=== PATIENT | male | born 1945 | race Caucasian/White ===

== ENCOUNTER → 2018-12-03 | Outpatient (CLI) | payer OTHER ==
[~2018-12-03] MED LIST: ALLO100T30 PO; CEFAZOLIN 1,000 MG ONE; CHOL2000 PO; DEXAMETHASONE 4 MG/ML, 1ML ONE; FENTANYL PF 100 MCG/2ML ONE; GLYCOPYRROLATE 0.2MG/1ML, 5ML ONE; NEOSTIGMINE 1 MG/ML, 10ML ONE; ONDANSETRON 2MG/ML, 2ML ONE; PROPOFOL 10 MG/ML, 20ML ONE; ROCURONIUM 10MG/ML,5ML ONE; SUCCINYLCHOLINE 20 MG/ML, 10ML ONE; TAMS-11 PO
[2018-12-03 16:04] LABS: MICROSCOPIC AUTO
== END | disposition home or self-care (01) ==
LOC: STAR 14:54
PROVIDERS: ATTEND Urology
DX: Z01.818 Encounter for other preprocedural examination (principal); N20.0 Calculus of kidney
CPT/HCPCS: 81001; 87086; 93005

== ENCOUNTER 2018-12-08 06:34 | Observation (INO) | payer OTHER ==
[~2018-12-08] VITALS: Ht 172.7 cm; Wt 66.7 kg
[~2018-12-08 06:34] MED LIST changes: -CEFAZOLIN 1,000 MG ONE; -DEXAMETHASONE 4 MG/ML, 1ML ONE; -FENTANYL PF 100 MCG/2ML ONE; -GLYCOPYRROLATE 0.2MG/1ML, 5ML ONE; -NEOSTIGMINE 1 MG/ML, 10ML ONE; -ONDANSETRON 2MG/ML, 2ML ONE; -PROPOFOL 10 MG/ML, 20ML ONE; -ROCURONIUM 10MG/ML,5ML ONE; -SUCCINYLCHOLINE 20 MG/ML, 10ML ONE
[2018-12-08 06:57] VITALS: BP 139/77
[2018-12-08] MEDS ORDERED: CEFAZOLIN PMX 1GM/50ML 50 ML IV ONE (07:00)
[2018-12-08] MEDS ORDERED: LIDOCAINE-MPF 1%, 5ML ONE (07:20)
[2018-12-08] MEDS: SODIUM CHLORIDE 0.9% 1,000 ML IV SCH ×2 (07:22→16:09)
[2018-12-08] MEDS ORDERED: FLUMAZENIL 0.1 MG/1 ML, 5ML ONE (08:06)
[2018-12-08] MEDS ORDERED: FENTANYL PF 100 MCG/2ML ONE ×2 (08:06→10:39)
[2018-12-08] MEDS ORDERED: MIDAZOLAM 1 MG/ML, 5ML ONE (08:06)
[2018-12-08] MEDS ORDERED: NALOXONE 1 MG/ML, 2ML ONE (08:06)
[2018-12-08] MEDS ORDERED: OMNIPAQUE 350 MG/ML, 50 ML BOTTLE ONE (11:20)
[2018-12-08] MEDS ORDERED: EPHEDRINE 50 MG/ML, 1ML ONE (11:21)
[2018-12-08] MEDS ORDERED: CIPROFLOXACIN 400MG/200ML PMX ONE (11:21)
[2018-12-08] MEDS ORDERED: PROPOFOL 10 MG/ML, 20ML ONE ×2 (11:53→11:58)
[2018-12-08] MEDS ORDERED: ONDANSETRON 2MG/ML, 2ML ONE ×2 (11:53→11:58)
[2018-12-08] MEDS ORDERED: DEXAMETHASONE 4 MG/ML, 1ML ONE ×2 (11:53→11:58)
[2018-12-08] MEDS ORDERED: CEFAZOLIN 1,000 MG ONE ×2 (11:53→11:58)
[2018-12-08] MEDS ORDERED: ROCURONIUM 10MG/ML,5ML ONE ×2 (11:53→11:58)
[2018-12-08] MEDS ORDERED: NEOSTIGMINE 1 MG/ML, 10ML ONE ×2 (11:53→11:58)
[2018-12-08] MEDS ORDERED: SUCCINYLCHOLINE 20 MG/ML, 10ML ONE ×2 (11:53→11:58)
[2018-12-08] MEDS ORDERED: GLYCOPYRROLATE 0.2MG/1ML, 5ML ONE ×2 (11:53→11:58)
[2018-12-08] MEDS ORDERED: FENTANYL PF 250 MCG/5ML ONE (11:58)
[2018-12-08] MEDS ORDERED: FENTANYL PF 100 MCG/2ML IV PRN (12:30)
[2018-12-08] MEDS ORDERED: ONDANSETRON 2MG/ML, 2ML IV PRN ×2 (12:30→15:00)
[2018-12-08] MEDS ORDERED: ACETAMINOPHEN 325 MG TABLET PO PRN (12:30)
[2018-12-08] MEDS ORDERED: ONDANSETRON ODT 8 MG PO PRN (12:30)
[2018-12-08] MEDS ORDERED: DIAZEPAM 5 MG/ML, 2ML IVPush PRN (12:30)
[2018-12-08] MEDS ORDERED: OXYcodone 5 MG/5 ML ORAL.SOL UDC PO PRN (12:30)
[2018-12-08] MEDS ORDERED: HYDROmorphone 2 MG/ML, 1ML IVPush PRN (12:30)
[2018-12-08] MEDS ORDERED: PROMETHAZINE 25 MG/ML, 1ML IV PRN (12:30)
[2018-12-08] MEDS ORDERED: OXYcodone 5 MG/5 ML ORAL.SOL UDC ONE (14:35)
[2018-12-08] MEDS ORDERED: OXYcodone/APAP 5/325MG TABLET PO PRN (15:00)
[2018-12-08] MEDS ORDERED: HYDROmorphone 2 MG/ML, 1ML IV PRN (15:00)
[2018-12-08 20:38] VITALS: BP 120/74
[2018-12-08] MEDS ORDERED: TAMSULOSIN 0.4 MG CAP.ER.24H PO SCH (21:00)
[2018-12-08] MEDS: LACTATED RINGERS 1,000 ML IV SCH (23:25)
[2018-12-09 00:25] VITALS: BP 112/69
[2018-12-09 05:15] LABS: BASOPHILS % (AUTO) 0 % (0-1); EOSINOPHILS # (AUTO) 0.49 x10^3/uL (0-0.4); EOSINOPHILS % (AUTO) 3 % (1-7); LYMPHOCYTES # (AUTO) 0.55 x10^3/uL (1-3.4); LYMPHOCYTES % (AUTO) 4 % (22-44); MD NO; MEAN CORPUSCULAR HEMOGLOBIN 31.8 pg (27.5-34.5); MEAN CORPUSCULAR HGB CONC 33.8 g/dL (33.2-36.2); MEAN CORPUSCULAR VOLUME 93.9 fL (81-97); MEAN PLATELET VOLUME 9.7 fL (7.4-10.4); MONOCYTES # (AUTO) 0.59 x10^3/uL (0.2-0.8); MONOCYTES % (AUTO) 4 % (2-9); NEUTROPHILS # (AUTO) 13.63 x10^3/uL (1.8-6.8); NEUTROPHILS % (AUTO) 89 % (42-75); PLATELET COUNT 192 x10^3/uL (130-400); RED BLOOD COUNT 2.79 x10^6/uL (4.38-5.82); RED CELL DISTRIBUTION WIDTH 16.3 % (9.4-14.8)
[2018-12-09 05:24] LABS: ANION GAP 10 mmol/L (5-15); CALCIUM 7.1 mg/dL (8.5-10.1); CHLORIDE 114 mmol/L (98-107); CREATININE 2.03 mg/dL (0.7-1.3)
[2018-12-09 06:58] VITALS: BP 100/53
[2018-12-09] MEDS: LACTATED RINGERS 1,000 ML IV SCH (07:56)
[2018-12-09] MEDS ORDERED: CHOLECALCIFEROL 1,000 UNIT TABLET PO SCH (09:00)
[2018-12-09] MEDS ORDERED: ALLOPURINOL 100 MG TABLET PO SCH (09:00)
[2018-12-09 12:22] VITALS: BP 99/61
[2018-12-09] MEDS ORDERED: HYDR-3240 PO (12:42)
== END 2018-12-09 13:00 | disposition home or self-care (01) ==
LOC: OUT 06:34 → ORIP 14:51 → 4NOR 15:45 → DCLOUNGE 12-09 12:41
PROVIDERS: ADMIT Urology; ATTEND Urology
DX: N20.0 Calculus of kidney (principal)
CPT/HCPCS: 36415; 50080; 50433; 74425; 80048; 82360; 85025; 88300; 99156; 99157; C1727; C1729; C1751; C1758; C1769; C1894; C2625; C2627; G0378; J0330; J0690; J0744; J1100; J2250; J2405; J2704; J2710; J3010; J3490; J7030; J7120; Q9967; J2310

== ENCOUNTER 2019-06-18 12:35 | Outpatient (CLI) | payer OTHER ==
[~2019-06-18 12:35] MED LIST changes: +HYDR-3240 PO
[2019-06-18 13:46] LABS: MICROSCOPIC INDICATED
[2019-06-18 13:47] LABS: CULTURE INDICATED? YES
[2019-06-18] MEDS ORDERED: PT TO BRING LIST (13:53)
[2019-06-18 14:18] LABS: BASOPHILS # (AUTO) 0.06 x10^3/uL (0-0.1); BASOPHILS % (AUTO) 1 % (0-1); EOSINOPHILS # (AUTO) 0.33 x10^3/uL (0-0.4); EOSINOPHILS % (AUTO) 4 % (1-7); LYMPHOCYTES # (AUTO) 1.32 x10^3/uL (1-3.4); LYMPHOCYTES % (AUTO) 15 % (22-44); MD NO; MEAN CORPUSCULAR HEMOGLOBIN 31.9 pg (27.5-34.5); MEAN CORPUSCULAR HGB CONC 32.3 g/dL (33.2-36.2); MEAN CORPUSCULAR VOLUME 98.9 fL (81-97); MEAN PLATELET VOLUME 8.1 fL (7.4-10.4); MONOCYTES # (AUTO) 0.45 x10^3/uL (0.2-0.8); MONOCYTES % (AUTO) 5 % (2-9); NEUTROPHILS # (AUTO) 6.92 x10^3/uL (1.8-6.8); NEUTROPHILS % (AUTO) 76 % (42-75); PLATELET COUNT 284 x10^3/uL (130-400); RED BLOOD COUNT 3.82 x10^6/uL (4.38-5.82); RED CELL DISTRIBUTION WIDTH 14.2 % (9.4-14.8)
[2019-06-18 14:25] LABS: ALANINE AMINOTRANSFERASE 11 U/L (12-78); ALBUMIN 3.4 g/dL (3.4-5.0); ANION GAP 7 mmol/L (5-15); CALCIUM 8.5 mg/dL (8.5-10.1); CHLORIDE 105 mmol/L (98-107); CREATININE 1.75 mg/dL (0.7-1.3)
[2019-06-18 14:27] LABS: ALKALINE PHOSPHATASE 92 U/L (45-117); BILIRUBIN,TOTAL 0.5 mg/dL (0.2-1.0); TOTAL PROTEIN 8.3 g/dL (6.4-8.2)
== END 2019-06-18 23:59 | disposition home or self-care (01) ==
LOC: STAR 12:35
PROVIDERS: ATTEND Urology
DX: Z01.818 Encounter for other preprocedural examination (principal); N20.0 Calculus of kidney
CPT/HCPCS: 36415; 80053; 81001; 85025; 87077; 87086; 93005

== ENCOUNTER 2019-06-29 06:45 | Observation (INO) | payer OTHER ==
[~2019-06-29] VITALS: Ht 172.7 cm; Wt 61.9 kg
[~2019-06-29 06:45] MED LIST changes: +PT TO BRING LIST
[2019-06-29] MEDS ORDERED: LACTATED RINGERS 1,000 ML IV SCH (07:43)
[2019-06-29] MEDS ORDERED: TOLT2TAB4 PO (07:48)
[2019-06-29] MEDS ORDERED: POTA10TA17 PO (07:48)
[2019-06-29] MEDS ORDERED: FERR324T5 PO (07:48)
[2019-06-29] MEDS ORDERED: MAGN420T PO (07:48)
[2019-06-29] MEDS ORDERED: TAMS-11 PO (07:48)
[2019-06-29] MEDS ORDERED: LIDOCAINE-MPF 1%, 2ML INFIL ONE (08:00)
[2019-06-29] MEDS: SODIUM CHLORIDE 0.9% 1,000 ML IV SCH ×2 (08:20→18:16)
[2019-06-29] MEDS ORDERED: LIDOCAINE 1%, 10ML ONE (08:32)
[2019-06-29] MEDS ORDERED: DIPHENHYDRAMINE 50 MG/ML, 1ML ONE (09:00)
[2019-06-29] MEDS ORDERED: FLUMAZENIL 0.1 MG/1 ML, 5ML ONE (09:00)
[2019-06-29] MEDS ORDERED: FENTANYL PF 100 MCG/2ML ONE (09:00)
[2019-06-29] MEDS ORDERED: NALOXONE 1 MG/ML, 2ML ONE (09:00)
[2019-06-29] MEDS ORDERED: MIDAZOLAM 1 MG/ML, 5ML ONE (09:00)
[2019-06-29] MEDS ORDERED: CEFAZOLIN PMX 1GM/50ML 50 ML ONE (09:13)
[2019-06-29] MEDS ORDERED: VISIPAQUE 270 MG/ML, 50ML BOTTLE ONE (10:00)
[2019-06-29] MEDS ORDERED: FENTANYL PF 250 MCG/5ML ONE (13:24)
[2019-06-29] MEDS ORDERED: PROPOFOL 10 MG/ML, 20ML ONE (13:45)
[2019-06-29] MEDS ORDERED: ROCURONIUM 10MG/ML,5ML ONE (13:45)
[2019-06-29] MEDS ORDERED: DEXAMETHASONE 4 MG/ML, 1ML ONE (13:45)
[2019-06-29] MEDS ORDERED: OCTREOTIDE 500 MCG/ML, 1ML (0.5MG/ML) ONE (14:00)
[2019-06-29] MEDS ORDERED: OXYcodone/APAP 5/325MG TABLET PO PRN (16:30)
[2019-06-29] MEDS ORDERED: ONDANSETRON 2MG/ML, 2ML IV PRN ×2 (16:30→17:00)
[2019-06-29] MEDS ORDERED: hydrALAzine 20 MG/ML, 1ML IV PRN (17:00)
[2019-06-29] MEDS ORDERED: PROMETHAZINE 25 MG/ML, 1ML IV PRN (17:00)
[2019-06-29] MEDS ORDERED: OXYcodone 5 MG/5 ML ORAL.SOL UDC PO PRN (17:00)
[2019-06-29] MEDS ORDERED: FENTANYL PF 100 MCG/2ML IV PRN (17:00)
[2019-06-29] MEDS ORDERED: LABETALOL 5MG/ML, 20ML IV PRN (17:00)
[2019-06-29] MEDS ORDERED: HYDROmorphone 2 MG/ML, 1ML IVPush PRN (17:00)
[2019-06-29] MEDS ORDERED: hydrALAzine 20 MG/ML, 1ML ONE (17:59)
[2019-06-29 18:46] VITALS: BP 123/71
[2019-06-29] MEDS: LACTATED RINGERS 1,000 ML IV SCH (20:00)
[2019-06-30 00:04] VITALS: BP 110/60
[2019-06-30 04:19] VITALS: BP 113/69
[2019-06-30] MEDS: LACTATED RINGERS 1,000 ML IV SCH ×2 (05:13→16:00)
[2019-06-30 06:39] VITALS: BP 134/72
[2019-06-30] MEDS: ALLOPURINOL 100 MG TABLET PO SCH (08:20)
[2019-06-30] MEDS: CHOLECALCIFEROL 1,000 UNIT TABLET PO SCH (08:20)
[2019-06-30] MEDS: SODIUM CHLORIDE 0.9% 1,000 ML IV SCH ×2 (10:40→16:29)
[2019-06-30 13:11] VITALS: BP 136/70
[2019-06-30] MEDS ORDERED: ACETAMINOPHEN 325 MG TABLET PO PRN ×3 (14:30→20:00)
[2019-06-30 14:33] LABS: MEAN CORPUSCULAR HEMOGLOBIN 32.1 pg (27.5-34.5); MEAN CORPUSCULAR HGB CONC 32.8 g/dL (33.2-36.2); MEAN PLATELET VOLUME 8.6 fL (7.4-10.4); PLATELET COUNT 222 x10^3/uL (130-400); RED BLOOD COUNT 3.48 x10^6/uL (4.38-5.82)
[2019-06-30] MEDS ORDERED: HYDR-3240 PO (14:33)
[2019-06-30 14:39] LABS: ANION GAP 4 mmol/L (5-15); CHLORIDE 102 mmol/L (98-107); CREATININE 1.65 mg/dL (0.7-1.3)
[2019-06-30 14:54] LABS: BASOPHILS % (AUTO) 0 % (0-1); EOSINOPHILS % (AUTO) 0 % (1-7); LYMPHOCYTES # (AUTO) 0.59 x10^3/uL (1-3.4); LYMPHOCYTES % (AUTO) 4 % (22-44); MD SCAN; MONOCYTES # (AUTO) 0.45 x10^3/uL (0.2-0.8); MONOCYTES % (AUTO) 3 % (2-9); NEUTROPHILS # (AUTO) 12.78 x10^3/uL (1.8-6.8); NEUTROPHILS % (AUTO) 93 % (42-75)
[2019-06-30 15:34] LABS: RED CELL DISTRIBUTION WIDTH 14.4 % (9.4-14.8)
[2019-06-30] MEDS ORDERED: CEFTRIAXONE PMX 2GM/50ML 50 ML IV ONE (16:00)
[2019-06-30 17:22] LABS: CULTURE INDICATED? YES; MICROSCOPIC INDICATED
[2019-06-30] MEDS ORDERED: ACETAMINOPHEN 650 MG SUPP PR PRN (17:30)
[2019-06-30 19:47] VITALS: BP 104/58
[2019-07-01 01:53] VITALS: BP 121/62
[2019-07-01] MEDS: LACTATED RINGERS 1,000 ML IV SCH ×2 (02:00→11:16)
[2019-07-01] MEDS: SODIUM CHLORIDE 0.9% 1,000 ML IV SCH ×2 (02:15→15:20)
[2019-07-01 06:01] LABS: BASOPHILS # (AUTO) 0.02 x10^3/uL (0-0.1); BASOPHILS % (AUTO) 0 % (0-1); EOSINOPHILS # (AUTO) 0.03 x10^3/uL (0-0.4); EOSINOPHILS % (AUTO) 0 % (1-7); LYMPHOCYTES # (AUTO) 0.85 x10^3/uL (1-3.4); LYMPHOCYTES % (AUTO) 10 % (22-44); MD NO; MEAN CORPUSCULAR HEMOGLOBIN 31.6 pg (27.5-34.5); MEAN CORPUSCULAR HGB CONC 32.7 g/dL (33.2-36.2); MEAN CORPUSCULAR VOLUME 96.4 fL (81-97); MEAN PLATELET VOLUME 8.6 fL (7.4-10.4); MONOCYTES # (AUTO) 0.88 x10^3/uL (0.2-0.8); MONOCYTES % (AUTO) 10 % (2-9); NEUTROPHILS # (AUTO) 6.78 x10^3/uL (1.8-6.8); NEUTROPHILS % (AUTO) 79 % (42-75); PLATELET COUNT 165 x10^3/uL (130-400); RED BLOOD COUNT 3.11 x10^6/uL (4.38-5.82); RED CELL DISTRIBUTION WIDTH 14.2 % (9.4-14.8)
[2019-07-01 06:09] LABS: ALBUMIN 2.6 g/dL (3.4-5.0); ANION GAP 4 mmol/L (5-15); CALCIUM 7.8 mg/dL (8.5-10.1); CHLORIDE 107 mmol/L (98-107)
[2019-07-01 06:14] LABS: ALANINE AMINOTRANSFERASE 26 U/L (12-78); ALKALINE PHOSPHATASE 84 U/L (45-117); BILIRUBIN,TOTAL 0.4 mg/dL (0.2-1.0); CREATININE 1.63 mg/dL (0.7-1.3); TOTAL PROTEIN 6.2 g/dL (6.4-8.2)
[2019-07-01 06:48] VITALS: BP 111/63
[2019-07-01] MEDS: ALLOPURINOL 100 MG TABLET PO SCH (09:14)
[2019-07-01] MEDS: CHOLECALCIFEROL 1,000 UNIT TABLET PO SCH (09:14)
[2019-07-01] MEDS ORDERED: MIRA25TA PO (13:25)
[2019-07-01 15:02] VITALS: BP 118/68
== END 2019-07-01 15:50 | disposition home or self-care (01) ==
LOC: OUT 06:45 → ORIP 16:23 → 4NE 18:45 → DCLOUNGE 07-01 15:44
PROVIDERS: ADMIT Urology; ATTEND Urology
DX: N20.2 Calculus of kidney with calculus of ureter (principal)
CPT/HCPCS: 36415; 50433; 52356; 74018; 74176; 76000; 80048; 80053; 81001; 82360; 85025; 87086; 88300; 96365; 99156; 99157; C1727; C1751; C1758; C1769; C1894; C2617; C2625; G0378; J0360; J0690; J0696; J1100; J1200; J2250; J2354; J2704; J3010; J3490; J7030; Q9966; J2310